=== PATIENT | male | born 1955 | race Caucasian/White ===

== ENCOUNTER 2023-09-20 10:59 | Day surgery (SDC) | payer MEDICARE, OTHER, SELFPAY ==
[2023-09-20 11:27] VITALS: BP 149/91; PULSE 84; RESP 16; TEMP 36.1; O2SAT 95
[2023-09-20] MEDS: LACTATED RINGERS 1,000 ML 42 ML IV (11:40)
--- NOTE | 2023-09-20 11:51 | PM.HP.1 ---
History of Present Illness History of Present Illness Date Patient Seen: 09/20/23 Time Patient Seen: 11:51 Chief complaint: SDC Narrative: Shashank is a 68-year-old man who is here for a colonoscopy. He has never had 1 before. No known family history of colon cancer. [facility] Medical History (Updated 09/20/23 @ 11:52 by Dioni Kraus MD) Difficulty with speech Plantar warts Rubella (~1959) Mumps (~1959) Chicken pox (~1959) Systolic heart failure (~2009) History of CVA (cerebrovascular accident) Atrial fibrillation (~2013) Type 2 diabetes mellitus (~1996) History of disruption of posterior cruciate ligament Surgical History (Updated 02/27/23 @ 21:12 by Raquel Peterson) Anesthesia History of cardiac radiofrequency ablation (~2015) History of surgery (~2017) History of cardioversion History of appendectomy History of mitral valve repair (~2013) Family History (Updated 02/27/23 @ 21:13 by Raquel Peterson) Father Cancer Mother Alzheimer's disease Social History Smoking Status: Never smoker alcohol intake: current substance use type: marijuana (former) Meds Home Medications and Allergies Home Medications Medication Instructions Recorded Confirmed Type amiodarone 200 mg tablet 100 mg PO DAILY 02/23/23 09/20/23 History apixaban 5 mg tablet (Eliquis) 5 mg PO BID 02/23/23 09/20/23 History atorvastatin 10 mg tablet 10 mg PO DAILY 02/23/23 09/20/23 History glucagon 3 mg/actuation nasal 3 mg intranasal PRN hypoglycemia 02/23/23 02/23/23 History spray (Baqsimi) insulin glargine 100 unit/mL (3 8 unit SUBCUT QPM 02/23/23 09/20/23 History mL) subcutaneous pen (Lantus Solostar U-100 Insulin) insulin lispro 100 unit/mL 5 unit SUBCUT QAC 02/23/23 09/20/23 History subcutaneous cartridge (Humalog U-100 Insulin) metformin 500 mg tablet,extended 500 mg PO DAILY 02/23/23 09/20/23 History release 24 hr pen needle, diabetic 32 gauge x #1,200 ea 02/23/23 02/23/23 History (BD Angela 2nd Gen Pen Needle) Allergies Allergy/AdvReac Type Severity Reaction Status Date / Time No Known Drug Allergies Allergy Verified 09/20/23 11:15 Exam Vital Signs (past 8 hours): - 09/20/23 11:27 Temperature 97.0 F L Pulse Rate 84 Respiratory Rate 16 Blood Pressure 149/91 H Pulse Oximetry 95 Oxygen Delivery Method Room Air Oxygen Delivery Method Room Air Const General: healthy appearing Resp Effort & Inspection: normal respiratory effort Assessment & Plan Assessment and plan (1) Colon cancer screening: Status: Acute Plan We reviewed the risks and benefits of colonoscopy for colon cancer screening and he would like to proceed.
--- NOTE | 2023-09-20 12:27 | PM.OP.COLON ---
Operative Date/Time/Diagnoses Date of procedure: 09/20/23 Time of procedure: 12:27 Pre-op diagnosis: Colon cancer screening Post-op diagnosis: same Procedure & Clinicians Study performed: Colonoscopy Same procedure as scheduled: Yes Surgeon: Dioni Kraus Procedure Notes Procedure in detail: Surgeon: Dioni Kraus MD Anesthesia: Sangeetha Isabel MD Procedure: The patient was brought to the endoscopy suite, placed in left lateral decubitus position. The patient was connected to monitoring devices. A time-out was performed. Sedation was administered. Once the patient was adequately sedated, a digital rectal exam was performed and was normal. The scope was then inserted and advanced to the cecum where the appendiceal orifice was identified and photographed. The scope was then slowly withdrawn over greater than 6 minutes. The mucosa was thoroughly inspected. No abnormalities were noted. The scope was retroflexed in the rectum. Mild internal hemorrhoids were noted. The scope was straightened and removed. The patient was awakened and brought to recovery. Scope withdrawal time: 7 minutes Sedation time: 14 minutes EBL: 0 Findings: Normal colon Post-procedure Recommendations: Colonoscopy in 10 years Disposition: PACU
[2023-09-20 12:28] VITALS: BP 105/75; PULSE 82; RESP 21; TEMP 36.2; O2SAT 98
[2023-09-20 12:33] VITALS: BP 100/69; PULSE 91; RESP 18; O2SAT 100
[2023-09-20 12:38] VITALS: BP 106/73; PULSE 78; RESP 18; O2SAT 100
[2023-09-20 12:44] VITALS: BP 136/86; PULSE 92; RESP 18; O2SAT 100
== END 2023-09-20 13:01 | disposition home or self-care (01) ==
PROVIDERS: PCP Family Medicine; Referring Provider Surgery; Visit Provider Surgery
PROC: 0DJD8ZZ Inspection of Lower Intestinal Tract, Via Natural or Artificial Opening Endoscopic (ICD-10-PCS; CPT 45378; principal; 2023-09-20 11:45)
DX: Z12.11 Encounter for screening for malignant neoplasm of colon (principal); K64.8 Other hemorrhoids
CPT/HCPCS: G0121; 82962; J2704